=== PATIENT | female | born 1975 | race Caucasian/White ===

== ENCOUNTER 2017-01-21 19:55 | Emergency (ER) | payer OTHER ==
[2017-01-21] MEDS ORDERED: HYDROmorphONE/DILAUDID 1 MG/ML SYR IVP ONE (20:42)
--- NOTE | 2017-01-21 20:46 | EDPHY ---
H & P Time Seen by Provider: 01/21/17 20:43 HPI/ROS: CHIEF COMPLAINT: Heavy menstrual bleeding, pelvic pain HISTORY OF PRESENT ILLNESS: This patient is a 41 year old female who presents to the Emergency Department complaining of severe (9/10) pelvic pain beginning at 1500 today. She reports excessively heavy menstrual bleeding since yesterday ; she has used 4 pads today. She describes her pelvic pain as a strong pinch with diffuse lower abdominal cramping, not improved with use of Ibuprofen taken at 1500 and just prior to arrival. Her period was approximately 10 days late. She had never had painful periods like this previously. She has been once and has a 9 year old child. No control use. REVIEW OF SYSTEMS: Constitutional: No fever, no chills Eyes: No visual changes ENT: No sore throat Respiratory: No cough, no shortness of breath Cardiac: No chest pain Gastrointestinal: No nausea, no vomiting, +abdominal pain Genitourinary: +heavy menstrual bleeding, +pelvic pain, no hematuria, no dysuria Musculoskeletal: No leg pain or swelling Skin: No rash Neurological: No headache, no numbness, no weakness Psychiatric: No depression Past Medical/Surgical History: Denies. Social History: English-speaking only. Smoking Status: Never smoked Physical Exam: General Appearance: Alert, mild distress, appears in pain Eyes: Pupils equal and round, no conjunctival pallor or injection ENT, Mouth: Mucous membranes moist Neck: Normal inspection Respiratory: Lungs are clear to auscultation Cardiovascular: Regular rate and rhythm Gastrointestinal: Abdomen is soft, suprapubic tenderness to palpation Neurological: A&O, nonfocal, normal gait Skin: Warm and dry, no rash Extremities: Nontender, no pedal edema Psychiatric: Mood and affect normal Constitutional: Initial Vital Signs Temperature (C) 36.8 C 01/21/17 20:02 Heart Rate 74 01/21/17 20:02 Respiratory Rate 18 01/21/17 20:02 Blood Pressure 99/82 H 01/21/17 20:02 O2 Sat (%) 96 01/21/17 20:02 O2 Delivery Mode Room Air Allergies/Adverse Reactions: No Known Allergies Allergy (Verified 01/21/17 20:01) Home Medications: Medication Instructions Recorded Hydrocodone/APAP 5/325 [[place] 1 - 2 tab PO Q4H PRN #10 tab 01/21/17 5/325] Ibuprofen [Motrin] 800 mg PO Q8 #20 tab 01/22/17 oxyCODONE IR [Oxycodone Ir (*)] 5 - 10 mg PO Q6 PRN #20 tab 01/22/17 Medical Decision Making ED Course/Re-evaluation: IV established. 0.5mg IV Dilaudid administered. stat BHCG negative. Clinical presentation c/w dysfunctional bleeding. Doubt alternative etiology such as ruptured ovarian cyst, appy. 30mg IV Toradol administered for persistent pain. Feels better after IV Toradol. Abd exam benign. Will d/c home. Abd pain precautions and Ibuprofen instructions given. Differential Diagnosis: includes though not limited to ectopic , ruptured ovarian cyst, appy, PID, severe hemorrhage/anemia - Data Points Laboratory Results: Laboratory Results 01/21/17 20:25 Medications Given: Discontinued Medications Hydromorphone HCl (Dilaudid) 0.5 mg IVP EDNOW ONE Stop: 01/21/17 20:43 Last Admin: 01/21/17 20:49 Dose: 0.5 mg Ketorolac Tromethamine (Toradol) 30 mg IVP EDNOW ONE Stop: 01/21/17 21:31 Last Admin: 01/21/17 21:38 Dose: 30 mg Departure - Departure Disposition: Home, Routine, Self-Care Clinical Impression: Dysfunctional uterine bleeding Condition: Good Instructions: Dysfunctional Uterine Bleeding (ED) Additional Instructions: 1. Take 600mg Ibuprofen every 6 hours with food as needed for pain. 2. Take [place] as prescribed as needed for severe pain. 3. Return to the Emergency Department if you experience lightheadedness or dizziness, increased bleeding, uncontrollable severe pain, or other serious concerns. 1. Latasha 600 mg de Ibuprofen cada 6 horas con comida a harshad lo necesite para dolor. 2. [place] a harshad se le rubio recetado si lo necesita para dolor lissa. 3. Regrese a la cici de emergencia si experimenta tener la hung ligera o mareos, sangrado muy pesado, dolor lissa incontroloble, u otras preocupaciones serias. Referrals: Maeve Lakhani MD [Primary Care Provider] - As per Instructions Prescriptions: Hydrocodone/APAP 5/325 [[place] 5/325] 1 - 2 tab PO Q4H PRN #10 tab PRN Reason: Pain, Moderate Print Language: English Report Scribed for: Yandy Spears Report Scribed by: Yara Alvarez Date of Report: 01/21/17 Time of Report: 20:46 Physician Review and Approval Statement: 01/21/17 20:46 Portions of this note were transcribed by a certified medical asst. I personally performed a history, physical exam, medical decision making, and confirmed accuracy of information the transcribed note.
[2017-01-21 20:48] LABS: % IMMATURE GRANULYOCYTES 0.3 % (0.0-1.1); ABSOLUTE IMMATURE GRANULOCYTES 0.02 10^3/uL (0.00-0.10); ADD DIFF? NO; ADD MORPH? NO; ADD SCAN? NO; ATYPICAL LYMPHOCYTE FLAG 0 (0-99); FRAGMENT RBC FLAG 0 (0-99); HEMATOCRIT 41.8 % (38.0-47.0); HEMOGLOBIN 14.2 g/dL (12.6-16.3); LEFT SHIFT FLG 0 (0-99); LIPEMIA HEMOLYSIS FLAG 90 (0-99); MEAN CELL VOLUME 88.4 fL (81.5-99.8); MEAN PLATELET VOLUME 13.4 fL (8.7-11.7); PLATELET CLUMPS FLAG 10 (0-99); PLATELET COUNT 141 10^3/uL (150-400); RED BLOOD CELL COUNT 4.73 10^6/uL (4.18-5.33); RED CELL DISTRIBUTION WIDTH 13.4 % (11.5-15.2)
[2017-01-21] MEDS ORDERED: KETOROLAC 30 MG/1 ML SDV IVP ONE (21:30)
[2017-01-21 21:39] VITALS: BP 103/67; PULSE 67; RESP 19; TEMP 98.1; O2SAT 97
== END 2017-01-21 22:09 | disposition home or self-care (01) ==
DX: N93.8 Other specified abnormal uterine and vaginal bleeding (principal)
CPT/HCPCS: 96374; J1170; J1885

== ENCOUNTER 2017-01-22 08:23 | Emergency (ER) | payer OTHER ==
--- NOTE | 2017-01-22 09:02 | EDPHY ---
H & P Stated Complaint: Returns w/abd cramps;has not taken [place];bleeding less now Time Seen by Provider: 01/22/17 09:01 - Personal History LMP (Females 10-55): Now Current Tetanus Diphtheria and Acellular Pertussis (TDAP): Yes Tetanus Vaccine Date: 2016 - Medical/Surgical History Hx Asthma: No Hx Chronic Respiratory Disease: No Hx Diabetes: No Hx Cardiac Disease: No Hx Renal Disease: No Hx Cirrhosis: No Hx Alcoholism: No Hx HIV/AIDS: No Hx Splenectomy or Spleen Trauma: No Other PMH: dysfunctional uterine bleeding (dx 01/21/17) - Social History Smoking Status: Never smoked Constitutional: Initial Vital Signs Temperature (C) 36.7 C 01/22/17 08:27 Heart Rate 78 01/22/17 08:27 Respiratory Rate 16 01/22/17 08:27 Blood Pressure 101/68 01/22/17 08:27 O2 Sat (%) 96 01/22/17 08:27 O2 Delivery Mode Room Air Allergies/Adverse Reactions: No Known Allergies Allergy (Verified 01/21/17 20:01) Home Medications: Medication Instructions Recorded Hydrocodone/APAP 5/325 [[place] 1 - 2 tab PO Q4H PRN #10 tab 01/21/17 5/325] Ibuprofen [Motrin] 800 mg PO Q8 #20 tab 01/22/17 oxyCODONE IR [Oxycodone Ir (*)] 5 - 10 mg PO Q6 PRN #20 tab 01/22/17 Medical Decision Making ED Course/Re-evaluation: CHIEF COMPLAINT: Pelvic pain HISTORY OF PRESENT ILLNESS: The patient is a [place]-speaking 41 y/o female arriving with her friend complaining of pelvic pain and heavy menstrual bleeding. She was evaluated yesterday for the same complaint and reports the bleeding has improved slightly since then. She says she has never had pain this bad before. She also endorses associated dysuria. She denies associated fever, diarrhea, vomiting, or non-bloody vaginal discharge. Her only abdominal surgery is a 9 years ago. History obtained via [place]ian language tutor. REVIEW OF SYSTEMS: A 10 point review of systems was performed and is negative with the exception of the elements mentioned in the history of present illness. PHYSICAL EXAM: HR, BP, O2 Sat, RR. Temp noted General Appearance: Alert, well hydrated, appropriate, and non-toxic appearing. Head: Atraumatic without scalp tenderness or obvious injury Eyes: Pupils equal, round, reactive to light and accommodation, EOMI, no trauma , no injection. Ears: Clear bilaterally, no perforation, normal landmarks Nose: Atraumatic, no rhinorrhea, clear. Throat: There is no erythema or exudates, no lesions, normal tonsils, mucus membranes moist. Neck: Supple, nontender, no lymphadenopathy. Respiratory: No retractions, no distress, no wheezes, and no accessory muscle use. Lungs are clear to auscultation bilaterally. Cardiovascular: Regular rate and rhythm, no murmurs, rubs, or gallops. Good capillary refill all extremities. Gastrointestinal: Abdomen is soft, moderate tenderness to lower abdomen, non- distended, no masses, no rebound, no guarding, no peritoneal signs. Musculoskeletal: Normal active ROM of all extremities, atraumatic. Neurological: Alert, appropriate, and interactive. Nonfocal neuro. Skin: No rashes, good turgor, no nodules on palpation. Past medical history: Past surgical history: Family history: noncontributory Social history: [place]ian speaking; friend at bedside Prior medical records reviewed including ED visit 01/21/17 for the same complaint. DIAGNOSTICS/PROCEDURES/CRITICAL CARE TIME: Study: Ultrasound of the: pelvis Indication: pain, vaginal bleeding Results: US scan of the abdomen was obtained. The results of the study are complex right hemorrhagic ovarian cyst without torsion. The study was read by the radiologist, Dr. Giles. I viewed the images myself on the PACS system. DIFFERENTIAL DIAGNOSIS: The differential diagnosis for the patient's abdominal pain included but was not limited to ovarian cyst, pelvic inflammatory disease, ovarian torsion, urinary tract infection, ectopic , cholecystitis, and appendicitis. MEDICAL DECISION MAKING: This is a normally healthy 41 y/o female presenting with a 1-day history of moderate abdominal cramping and pelvic pain associated with heavy menstrual bleeding. Her bleeding has lightened since yesterday, but she continues to have pain and dysuria. Her abdomen is soft with tenderness along her entire lower region. She had basic lab work yesterday with a negative BHCG, but no imaging was performed. Plan today for basic labs, UA, pelvic ultrasound, and symptom management. 0.5mg IV Dilaudid, 4mg IV Zofran, and 1L IV NS administered. Her urine only shows RBC, which could indicate a kidney stone but may also be related to her menstrual bleeding. Her blood counts are normal. US results still pending. 1026: Reassessed patient and discussed imaging results. She has a right hemorrhagic cyst that is likely causing all her acute symptoms. She is feeling improved after medication administration. I answered all her questions. She will be discharged with script for OxyIR and Motrin with referral to her PCP. I gave strict return precautions. She agrees with this plan. - Data Points Laboratory Results: Laboratory Results 01/22/17 09:30 01/22/17 09:30 01/22/17 01/22/17 01/22/17 09:30 09:30 09:30 WBC 6.40 10^3/uL 10^3/uL (3.80-9.50) RBC 4.80 10^6/uL 10^6/uL (4.18-5.33) Hgb 14.2 g/dL g/dL (12.6-16.3) Hct 42.9 % % (38.0-47.0) MCV 89.4 fL fL (81.5-99.8) MCH 29.6 pg pg (27.9-34.1) MCHC 33.1 g/dL g/dL (32.4-36.7) RDW 13.4 % % (11.5-15.2) Plt Count 133 10^3/uL L 10^3/uL (150-400) MPV 13.4 fL H fL (8.7-11.7) Neut % (Auto) 68.0 % % (39.3-74.2) Lymph % (Auto) 18.9 % % (15.0-45.0) [place] % (Auto) 10.9 % % (4.5-13.0) Eos % (Auto) 1.3 % % (0.6-7.6) Baso % (Auto) 0.6 % % (0.3-1.7) Nucleat RBC Rel Count 0.0 % % (0.0-0.2) Absolute Neuts (auto) 4.35 10^3/uL 10^3/uL (1.70-6.50) Absolute Lymphs (auto) 1.21 10^3/uL 10^3/uL (1.00-3.00) Absolute Monos (auto) 0.70 10^3/uL 10^3/uL (0.30-0.80) Absolute Eos (auto) 0.08 10^3/uL 10^3/uL (0.03-0.40) Absolute Basos (auto) 0.04 10^3/uL 10^3/uL (0.02-0.10) Absolute Nucleated RBC 0.00 10^3/uL 10^3/uL (0-0.01) Immature Gran % 0.3 % % (0.0-1.1) Immature Gran # 0.02 10^3/uL 10^3/uL (0.00-0.10) Sodium 142 mEq/L mEq/L (134-144) Potassium 4.1 mEq/L mEq/L (3.5-5.2) Chloride 108 mEq/L mEq/L (97-110) Carbon Dioxide 26 mEq/l mEq/l (22-31) Anion Gap 8 mEq/L mEq/L (8-16) BUN 9 mg/dL mg/dL (7-23) Creatinine 0.5 mg/dL L mg/dL (0.6-1.0) Estimated GFR > 60 Glucose 100 mg/dL mg/dL (70-100) Calcium 9.1 mg/dL mg/dL (8.5-10.4) Total Bilirubin 1.2 mg/dL mg/dL (0.1-1.4) Conjugated Bilirubin 0.3 mg/dL mg/dL (0.0-0.5) Unconjugated Bilirubin 0.9 mg/dL mg/dL (0.0-1.1) AST 18 IU/L IU/L (14-46) ALT 42 IU/L IU/L (9-52) Alkaline Phosphatase 71 IU/L IU/L (38-126) Total Protein 6.4 g/dL g/dL (6.3-8.2) Albumin 3.9 g/dL g/dL (3.5-5.0) Lipase 66.0 IU/L IU/L (23-300) Beta HCG, Qual NEGATIVE Urine Color Urine Appearance Urine pH Ur Specific [place] Urine Protein Urine Ketones Urine Blood Urine Nitrate Urine Bilirubin Urine Urobilinogen Ur Leukocyte Esterase Urine RBC Urine WBC Ur Epithelial Cells Ur Culture Indicated? Urine Glucose 01/22/17 09:00 WBC RBC Hgb Hct MCV MCH MCHC RDW Plt Count MPV Neut % (Auto) Lymph % (Auto) [place] % (Auto) Eos % (Auto) Baso % (Auto) Nucleat RBC Rel Count Absolute Neuts (auto) Absolute Lymphs (auto) Absolute Monos (auto) Absolute Eos (auto) Absolute Basos (auto) Absolute Nucleated RBC Immature Gran % Immature Gran # Sodium Potassium Chloride Carbon Dioxide Anion Gap BUN Creatinine Estimated GFR Glucose Calcium Total Bilirubin Conjugated Bilirubin Unconjugated Bilirubin AST ALT Alkaline Phosphatase Total Protein Albumin Lipase Beta HCG, Qual Urine Color YELLOW Urine Appearance CLEAR Urine pH 7.0 (5.0-7.5) Ur Specific [place] 1.010 (1.002-1.030) Urine Protein NEGATIVE (NEGATIVE) Urine Ketones NEGATIVE (NEGATIVE) Urine Blood 2+ H (NEGATIVE) Urine Nitrate NEGATIVE (NEGATIVE) Urine Bilirubin NEGATIVE (NEGATIVE) Urine Urobilinogen NEGATIVE EU EU (0.2-1.0) Ur Leukocyte Esterase NEGATIVE (NEGATIVE) Urine RBC 15-25 /hpf H /hpf (0-3) Urine WBC NONE SEEN /hpf /hpf (0-3) Ur Epithelial Cells TRACE /lpf /lpf (NONE-1+) Ur Culture Indicated? NOT INDICATED (NI) Urine Glucose NEGATIVE (NEGATIVE) Medications Given: Discontinued Medications Hydromorphone HCl (Dilaudid) 0.5 mg IVP EDNOW ONE Stop: 01/22/17 09:09 Last Admin: 01/22/17 09:34 Dose: 0.5 mg Sodium Chloride (Ns) 1,000 mls @ 0 mls/hr IV ONCE ONE PRN Reason: Wide Open Stop: 01/22/17 09:09 Last Admin: 01/22/17 09:33 Dose: 1,000 mls Ondansetron HCl (Zofran) 4 mg IVP EDNOW ONE Stop: 01/22/17 09:09 Last Admin: 01/22/17 09:33 Dose: 4 mg Departure - Departure Disposition: Home, Routine, Self-Care Clinical Impression: Hemorrhagic cyst of ovary, right Condition: Good Instructions: Ovarian Cyst (ED) Additional Instructions: 1. Take OxyIR as prescribed when needed for pain. 2. Take 800mg ibuprofen every 8 hours as prescribed for the next 4-5 days. 3. Follow up with your primary care provider in one month for another ultrasound to look at your ovary. 4. Return to the ED or [facility] if your pain becomes severe. Referrals: Maeve Lakhani MD [Primary Care Provider] - As per Instructions Prescriptions: Ibuprofen [Motrin] 800 mg PO Q8 #20 tab oxyCODONE IR [Oxycodone Ir (*)] 5 - 10 mg PO Q6 PRN #20 tab PRN Reason: Pain, Severe Report Scribed for: Jeremiah Mcclain Report Scribed by: Simran Ba Date of Report: 01/22/17 Time of Report: 10:12
[2017-01-22] MEDS ORDERED: NS 1,000 ML IV ONE (09:08)
[2017-01-22] MEDS ORDERED: ONDANSETRON 4 MG/2 ML VIAL IVP ONE (09:08)
[2017-01-22] MEDS ORDERED: HYDROmorphONE/DILAUDID 1 MG/ML SYR IVP ONE (09:08)
[2017-01-22 09:19] LABS: COLOR YELLOW; LEUKOCYTE ESTERASE,URINE NEGATIVE (NEGATIVE); NITRITE,URINE NEGATIVE (NEGATIVE)
[2017-01-22 09:25] LABS: RBC,URINE 15-25 /hpf (0-3)
[2017-01-22 09:26] LABS: WBC,URINE NONE SEEN /hpf (0-3)
[2017-01-22 09:38] LABS: % IMMATURE GRANULYOCYTES 0.3 % (0.0-1.1); ABSOLUTE IMMATURE GRANULOCYTES 0.02 10^3/uL (0.00-0.10); ADD DIFF? NO; ADD MORPH? NO; ADD SCAN? NO; ATYPICAL LYMPHOCYTE FLAG 10 (0-99); FRAGMENT RBC FLAG 0 (0-99); HEMATOCRIT 42.9 % (38.0-47.0); HEMOGLOBIN 14.2 g/dL (12.6-16.3); LEFT SHIFT FLG 0 (0-99); LIPEMIA HEMOLYSIS FLAG 80 (0-99); MEAN CELL HEMOGLOBIN 29.6 pg (27.9-34.1); MEAN CELL HEMOGLOBIN CONCENTR. 33.1 g/dL (32.4-36.7); MEAN CELL VOLUME 89.4 fL (81.5-99.8); MEAN PLATELET VOLUME 13.4 fL (8.7-11.7); PLATELET CLUMPS FLAG 0 (0-99); PLATELET COUNT 133 10^3/uL (150-400); RED CELL DISTRIBUTION WIDTH 13.4 % (11.5-15.2)
[2017-01-22 09:59] LABS: ALANINE AMINOTRANSFERASE 42 IU/L (9-52); ALBUMIN 3.9 g/dL (3.5-5.0); ALKALINE PHOSPHATASE 71 IU/L (38-126); ANION GAP 8 mEq/L (8-16); ASPARTATE AMINOTRANSFERASE 18 IU/L (14-46); BILIRUBIN,TOTAL 1.2 mg/dL (0.1-1.4); BILIRUBIN-CONJUGATED 0.3 mg/dL (0.0-0.5); BILIRUBIN-UNCONJUGATED 0.9 mg/dL (0.0-1.1); CALCIUM 9.1 mg/dL (8.5-10.4); CARBON DIOXIDE 26 mEq/l (22-31); CHLORIDE 108 mEq/L (97-110); CREATININE 0.5 mg/dL (0.6-1.0); GLOMERULAR FILTRATION RATE > 60; GLUCOSE 100 mg/dL (70-100); POTASSIUM 4.1 mEq/L (3.5-5.2); SODIUM 142 mEq/L (134-144); TOTAL PROTEIN 6.4 g/dL (6.3-8.2)
[2017-01-22 10:37] VITALS: BP 104/69; PULSE 62; RESP 12; TEMP 97.5; O2SAT 97
== END 2017-01-22 10:51 | disposition home or self-care (01) ==
DX: N83.201 Unspecified ovarian cyst, right side (principal)
CPT/HCPCS: 96374; J1170; J2405